=== PATIENT | female | born 1990 | race Caucasian/White ===

== ENCOUNTER 2016-11-10 02:20 | Emergency (ER) | payer BC ==
[~2016-11-10] VITALS: Ht 162.6 cm; Wt 72.6 kg
[2016-11-10 02:30] VITALS: BP 129/95
[2016-11-10] MEDS ORDERED: PENI500T PO (02:35)
[2016-11-10] MEDS ORDERED: HYDR-2758 PO (02:35)
--- NOTE | 2016-11-10 02:35 | PHYS DOC ---
Past History Past Medical History: No Pertinent History Past Surgical History: Tubal ligation Smoking: Non-smoker Alcohol Use: Rarely Drug Use: None Adult General Chief Complaint Chief Complaint: dental pain HPI HPI 25-year-old female with dental pain. Her pain is mild to moderate intermittent throbbing. It is nonradiating and without alleviating factors. She is tried over -the-counter ibuprofen without much relief. Review of systems is negative for stridor tongue swelling difficulty swallowing shortness of breath or fevers. All other review of systems is negative unless otherwise noted in history of present illness. ED course: 25-year-old presenting to the emergency department today with dental pain. Physical exam largely unremarkable. The patient was given oral pain medications to follow-up with her dentist in the next day or 2. The patient was then discharged home in stable condition to follow up with their primary care physician over the next 2-3 days. They were to return if their symptoms worsened or if they were concerned for any reason. [id number] discharge instructions and return precautions were given. Patient's questions were answered to their satisfaction. Patient is comfortable plan. Review of Systems Review of Systems SEE ABOVE. Allergies Allergies Allergies Coded Allergies Type Severity Reaction Last Updated Verified No Known Drug Allergies 02/19/15 No Physical Exam Physical Exam Constitutional: Well developed, well nourished, no acute distress, non-toxic appearance. [] HENT: Normocephalic, atraumatic, bilateral external ears normal, oropharynx moist, no oral exudates, nose normal. [] Eyes: PERRLA, EOMI, conjunctiva normal, no discharge. Neck: Normal range of motion, no tenderness, supple, no stridor. [] Cardiovascular:Heart rate regular rhythm, no murmur [] Lungs & Thorax: Bilateral breath sounds clear to auscultation [] Abdomen: Bowel sounds normal, soft, no tenderness, no masses, no pulsatile masses. [] Skin: Warm, dry, no erythema, no rash. [] Back: No tenderness, no CVA tenderness. [] Extremities: No tenderness, no cyanosis, no clubbing, ROM intact, no edema. Neurologic: Alert and oriented X 3, normal motor function, normal sensory function, no focal deficits noted. [] Psychologic: Affect normal, judgement normal, mood normal. [] EKG EKG [] Radiology/Procedures Radiology/Procedures [] Course & Med Decision Making Course & Med Decision Making Pertinent Labs and Imaging studies reviewed. (See chart for details) [] Dragon Disclaimer Dragon Disclaimer This chart was dictated in whole or in part using Voice Recognition software in a busy, high-work load, and often noisy Emergency Department environment. It may contain unintended and wholly unrecognized errors or omissions. Departure Departure: Impression: Primary Impression: Pain, dental Disposition: HOME, SELF-CARE Condition: STABLE Referrals: LYNNETTE RAHMAN DO (PCP) Patient Instructions: Dental Pain Additional Instructions: Thank you for allowing us to participate in your care today. Followup with a dentist in 1-2 days if your symptoms do not improve. Call your Primary Doctor tomorrow and inform them of your visit today. If you do not have a primary care provider you can ask for a list of our primary care providers. Return to the emergency department you have any new or concerning findings. This should be evaluated by the primary care physician and any necessary consulting services for continued management within a few days after discharge. Return to emergency room if you have any new or concerning symptoms including but not limited to fever, chills, nausea, vomiting, intractable pain, any new rashes, chest pain, shortness of air, uncontrolled bleeding, difficulty breathing, and/or vision loss. You may have been prescribed medication that can change in your level of thinking and ability to operate machinery. These medications include hydrocodone and Ativan. Also, Benadryl has been known to do this as well. Be sure to check with your pharmacist and ask if the medications you've prescribed can affect your level of consciousness. I recommend not operating heavy machinery or driving while on medication such as these. Scripts Penicillin V Potassium (PENICILLIN V POTASSIUM) 500 Mg Tablet 1 TAB PO BID, #10 TAB 0 Refills Prov: JEEVAN SIN MD 11/10/16 Hydrocodone Bit/Acetaminophen (HYDROCODONE-APAP 5-325 ) 1 Each Tablet 1 TAB PO PRN Q6HRS Y for PAIN, #15 TAB 0 Refills Prov: JEEVAN SIN MD 11/10/16 JEEVAN SIN MD Nov 10, 2016 02:35
[2016-11-10] MEDS ORDERED: IBUPROFEN 400 MG TABLET. PO ONE ×2 (03:15→03:18)
== END 2016-11-10 03:20 | disposition home or self-care (01) ==
LOC: ER 02:20
DX: K08.89 Other specified disorders of teeth and supporting structures (principal)
CPT/HCPCS: 81025; 99283

== ENCOUNTER → 2016-11-18 | Outpatient (CLI) | payer BC ==
[2016-11-10 02:30] VITALS: BP 129/95
[~2016-11-18] MED LIST: HYDR-2758 PO; PENI500T PO
--- NOTE | 2016-11-19 09:29 | RAD ---
DATE: 11/18/2016 EXAM: BREAST RIGHT ULTRASOUND HISTORY: Palpable lump in the right breast. COMPARISON: None available. FINDINGS: There is a hyperechoic area in the region of palpable abnormality measuring 12.6 x 7.5 mm. There is no abnormal posterior shadowing. There is no architectural distortion identified by ultrasound. IMPRESSION: Hyperechoic area compatible with a lipoma measuring 12.6 x 7.5 mm. Benign findings. BI-RADS CATEGORY: 2 BENIGN FINDING(S) RECOMMENDED FOLLOW-UP: CLIN FOLLOW UP IMAGING CLINICALLY INDICATED
== END | disposition home or self-care (01) ==
LOC: US 13:51
PROVIDERS: ATTEND Nurse Practitioner Adult Health
DX: N63 Unspecified lump in breast (principal)
CPT/HCPCS: 76641

== ENCOUNTER 2018-04-22 21:12 | Emergency (ER) | payer BC, OTHER ==
[~2018-04-22] VITALS: Ht 162.6 cm; Wt 64.4 kg
[~2018-04-22 21:12] MED LIST changes: +HYDR-2155 PO; -HYDR-2758 PO
[2018-04-22 21:15] VITALS: BP 141/91
[2018-04-22] MEDS ORDERED: ACETAMINOPHEN 500 MG TABLET PO ONE (21:45)
[2018-04-22] MEDS ORDERED: CYCL-331 PO (21:49)
--- NOTE | 2018-04-22 21:49 | PHYS DOC ---
Past History Past Medical History: Other Past Surgical History: No Surgical History Smoking: Non-smoker Alcohol Use: None Drug Use: None Adult General Chief Complaint Chief Complaint: MECHANICAL FALL HPI HPI Patient is a 27 year old female who presents with complaint of lower back and right shoulder pain. Patient states that she suffered an accidental fall at 1640 earlier today while she was in the shower. Patient states that she excellently slipped and fell back, hitting the back of her head, then following on her left side along the edge of the tub. Patient denies any loss consciousness. Patient has been ambulatory since the fall. Patient states that she has had worsening pain above her left buttock and worsening pain along the backside of her right shoulder since the fall. Patient states that she has history of degenerative disc disease of the lower lumbar spine that has been causing chronic pain. Patient states that she took ibuprofen 800 mg approximately 2 hours prior to arrival. Patient states that she was at work and having difficulty being able to do her job and was advised to come to the emergency department for further evaluation. Review of Systems Review of Systems Constitutional: Denies fever or chills [] Eyes: Denies change in visual acuity, redness, or eye pain [] HENT: Denies nasal congestion or sore throat [] Respiratory: Denies cough or shortness of breath [] Cardiovascular: Denies chest pain or edema[] GI: Denies abdominal pain, nausea, vomiting, bloody stools or diarrhea [] : Denies dysuria or hematuria [] Musculoskeletal: Right posterior shoulder pain, left lower back pain[] Integument: Denies rash or skin lesions [] Neurologic: Denies headache, focal weakness or sensory changes [] All other systems were reviewed and found to be within normal limits, except as documented in this note. Allergies Allergies Allergies Coded Allergies Type Severity Reaction Last Updated Verified No Known Drug Allergies 02/19/15 No Physical Exam Physical Exam Constitutional: Well developed, well nourished, no acute distress, non-toxic appearance. [] HENT: Normocephalic, atraumatic, bilateral external ears normal, oropharynx moist, no oral exudates, nose normal. [] Eyes: PERRLA, EOMI, conjunctiva normal, no discharge. [] Neck: Normal range of motion, no tenderness, supple, no stridor. [] Cardiovascular:Heart rate regular rhythm, no murmur [] Lungs & Thorax: Bilateral breath sounds clear to auscultation [] Abdomen: Bowel sounds normal, soft, no tenderness, no masses, no pulsatile masses. [] Skin: Warm, dry, no erythema, no rash. [] Back: No midline tenderness, left paraspinous muscle tenderness to palpation in the lower lumbar spine, no CVA tenderness. [] Extremities: Normal range of motion and right shoulder, normal alignment, tenderness palpation over the posterior right shoulder, no cyanosis, no clubbing , no edema. [] Neurologic: Alert and oriented X 3, normal motor function, normal sensory function, no focal deficits noted. [] Current Patient Data Vital Signs Vital Signs Date Time Temp Pulse Resp B/P (MAP) Pulse Ox O2 Delivery O2 Flow Rate FiO2 04/22/18 21:15 97.8 72 18 100 Room Air Lab Results Not performed EKG EKG Not performed[] Radiology/Procedures Radiology/Procedures Not performed[] Course & Med Decision Making Course & Med Decision Making Pertinent Labs and Imaging studies reviewed. (See chart for details) Assessing the patient, I do not see any severe injuries from her fall necessitating imaging. The patient also states that she does not feel she broke anything and does not feel that imaging is necessary. The patient was given Tylenol and will be prescribed Flexeril for continued outpatient treatment of lower lumbar strain and right shoulder strain. Advised follow-up with primary doctor in 1 week for reevaluation. The patient states that she would like to return to work tonight. I provided her with a work note advising light duty. Recommended return to emergency department for any worsening symptoms. Patient was understanding and in agreement with treatment plan.[] Dragon Disclaimer Dragon Disclaimer This electronic medical record was generated, in whole or in part, using a voice recognition dictation system. Departure Departure: Impression: Primary Impression: Right shoulder strain Additional Impression: Low back strain Disposition: 01 HOME, SELF-CARE Condition: IMPROVED Referrals: PCPMAEGAN (PCP) Patient Instructions: Back Pain in , Muscle Strain Additional Instructions: Follow-up with your primary doctor in 1 week for reevaluation. Return to the emergency department for any worsening symptoms. Scripts Cyclobenzaprine Hcl (CYCLOBENZAPRINE HCL) 10 Mg Tablet 1 TAB PO QHS PRN for MUSCLE PAIN, #20 TAB Prov: BABS CONDON MD 04/22/18 Problem Qualifiers Primary Impression: Right shoulder strain Encounter type: initial encounter Qualified Codes: S46.911A - Strain of unspecified muscle, fascia and tendon at shoulder and upper arm level, right arm , initial encounter Additional Impression: Low back strain Encounter type: initial encounter Qualified Codes: S39.012A - Strain of muscle, fascia and tendon of lower back, initial encounter BABS CONDON MD Apr 22, 2018 21:49
[2018-04-22] MEDS ORDERED: CYCLOBENZAPRINE 10 MG TABLET. ONE (21:55)
[2018-04-22] MEDS ORDERED: CYCLOBENZAPRINE 10 MG TABLET. PO ONE (22:00)
== END 2018-04-22 22:03 | disposition home or self-care (01) ==
LOC: ER 21:12
DX: S39.012A Strain of muscle, fascia and tendon of lower back, initial encounter (principal); S46.911A Strain of unspecified muscle, fascia and tendon at shoulder and upper arm level, right arm, initial encounter; G89.29 Other chronic pain; W01.198A Fall on same level from slipping, tripping and stumbling with subsequent striking against other object, initial encounter; Y93.E1 Activity, personal bathing and showering; Y92.89 Other specified places as the place of occurrence of the external cause; Y99.8 Other external cause status
CPT/HCPCS: 99283

== ENCOUNTER 2018-12-01 16:28 | Emergency (ER) | payer SELFPAY ==
[~2018-12-01] VITALS: Ht 162.6 cm; Wt 72.8 kg
[~2018-12-01 16:28] MED LIST changes: +CYCL-331 PO
[2018-12-01] MEDS ORDERED: IV NORMAL SALINE 1,000ML 1,000 ML IV SCH (17:02)
--- NOTE | 2018-12-01 17:08 | PHYS DOC ---
Past History Past Medical History: Asthma, Other (CHRISTINA VERGARA DO) Past Surgical History: Tubal ligation (CHRISTINA VERGARA DO) Smoking: Non-smoker Additional Smoking Information: 5-10 cig per day Alcohol Use: Occasionally Drug Use: None (CHRISTINA VERGARA DO) Adult General Chief Complaint Chief Complaint: ABDOMINAL PAIN HPI HPI Patient is a 27-year-old female presents with severe pelvic pain, worse on the left side, for Roxanol the past 4 hours. Patient is on the second day of her menstrual cycle. She has taken no medicine for this pain since ibuprofen did not help with usual pain and cramping last night. Reports the pain seems to radiate everywhere. She has had some nausea and vomiting secondary to the pain. No diarrhea. No blood in the emesis. No recent travel. No recent surgical history. Her surgical history is significant for tubal ligation. Nothing seems to make th e symptoms better. Movement makes it worse. No fever. No vaginal discharge other than her usual menstrual cycle bleeding.[] (CHRISTINA VERGARA DO) Review of Systems Review of Systems Constitutional: Denies fever or chills [] Eyes: Denies change in visual acuity, redness, or eye pain [] HENT: Denies nasal congestion or sore throat [] Respiratory: Denies cough or shortness of breath [] Cardiovascular: No chest pain or palpitations[] GI: See history of present illness[] : Denies dysuria or hematuria, see history of present illness [] Musculoskeletal: Denies back pain or joint pain [] Integument: Denies rash or skin lesions [] Neurologic: Denies headache, focal weakness or sensory changes [] Endocrine: Denies polyuria or polydipsia [] All other systems were reviewed and found to be within normal limits, except as documented in this note. (CHRISTINA VERGARA DO) Allergies Allergies Allergies Coded Allergies Type Severity Reaction Last Updated Verified No Known Drug Allergies 12/01/18 No (CHRISTINA VERGARA DO) Physical Exam Physical Exam Constitutional: Well developed, well nourished, uncomfortable, pacing, non-toxic appearance. [] HENT: Normocephalic, atraumatic, bilateral external ears normal, oropharynx moist, no oral exudates, nose normal. [] Eyes: PERRLA, EOMI, conjunctiva normal, no discharge. [] Neck: Normal range of motion, no tenderness, supple, no stridor. [] Cardiovascular:Heart rate regular rhythm, no murmur [] Lungs & Thorax: Bilateral breath sounds clear to auscultation [] Abdomen: Bowel sounds normal, soft, diffuse tenderness, worse in the left lower quadrant/left pelvis, no rebound, no guarding, no rigidity, able to sit up and lay back without any difficulty,, no masses, no pulsatile masses. Pelvic exam performed with retail field representative: External genitalia: Normal external genitalia, [place]'s glands, urethra, and Bartholin's glands. Vaginal vault: Mild blood in the vault, no other discharge noted. Cervix: Mild blood from the cervix, no cervical motion tenderness, parous os. [] Skin: Warm, dry, no erythema, no rash. [] Back: No tenderness, no CVA tenderness. [] Extremities: No tenderness, no cyanosis, no clubbing, ROM intact, no edema. [] Neurologic: Alert and oriented X 3, normal motor function, normal sensory function, no focal deficits noted. [] Psychologic: Affect normal, judgement normal, mood normal. [] ([facility]) Current Patient Data Vital Signs Vital Signs Date Time Temp Pulse Resp B/P (MAP) Pulse Ox O2 Delivery O2 Flow Rate FiO2 12/01/18 16:37 98.1 81 18 95 Room Air ([facility]) EKG EKG [] ([facility]) Radiology/Procedures Radiology/Procedures PROCEDURE: CT ABDOMEN PELVIS WO CONTRAST INDICATION: Lower abdominal and pelvic pain COMPARISON: None. TECHNIQUE: Axial CT images obtained through the abdomen and pelvis without contrast. Limited assessment of solid organ structures and vasculature secondary to lack of intravenous contrast. One or more of the following individualized dose reduction techniques were utilized for this examination: 1. Automated exposure control; 2. Adjustment of the mA and/or kV according to patient size; 3. Use of iterative reconstruction technique. FINDINGS: Abdominal aorta is not aneurysmal. Fat-containing umbilical hernia. No intrahepatic bile duct dilation. Numerous gallstones. Limited evaluation of pancreas without contrast without a definite adjacent fluid collection. Spleen unremarkable. No hydronephrosis. Urinary bladder is partially distended. Low-density lesion is suspected at the right adnexa measuring up to 28 mm. Appendix measures up to about 7 mm without definite adjacent inflammatory changes. No dilated loops of bowel to suggest obstruction. There is some degenerative changes the spine with disc protrusion osteophyte formation including at L4-5 and L5-S1. IMPRESSION: 1. No hydronephrosis or a definite radiopaque obstructive ureter stone. 2. Gallstones are identified. 3. The appendix is borderline dilated but there is no definite adjacent inflammatory changes to suggest acute appendicitis. 4. Low-density lesion within the right adnexa. Suspect that this is cystic in nature but if more complete characterization is desired pelvic ultrasound could further evaluate and ensure that there is no complex/solid component.[] (CHRISTINA VERGARA DO) Impressions: PROCEDURE: US PELVIS W/TV INDICATION: Pelvic pain COMPARISON: None. TECHNIQUE: Grayscale and color ultrasound images uterus and adnexa. Transabdominal and transvaginal images obtained. FINDINGS: Uterus: 81 x 50 x 38 mm. Endometrial Stripe: 4 mm. Right Ovary: 32 x 39 x 25 mm. Left Ovary: 27 x 26 x 21 mm. Vascular flow identified to bilateral ovaries. Hypoechoic lesion right ovary 22 x 20 mm. IMPRESSION: 1. Hypoechoic lesion of the right ovary with some internal echoes. Most likely cause would be a hemorrhagic cyst although a follow-up could be obtained to ensure that this decreases in size to exclude alternative causes of a complex cystic lesion of the adnexa. Electronically signed by: David Pandey MD (12/01/2018 6:38 PM) [facility] DICTATED AND SIGNED BY: DAVID PANDEY MD DATE: 12/01/181837 (STORMY HERNANDES Jr. DO) Course & Med Decision Making Course & Med Decision Making Pertinent Labs and Imaging studies reviewed. (See chart for details) ED course: Patient arrived, was placed in bed, and tolerated exam well. She was transported to and from [place] with any complications. Pelvic exam was performed with retail field representative as noted above. Patient care was endorsed to the nighttime physician with laboratory and ultrasound findings pending[] (CHRISTINA VERGARA DO) Dragon Disclaimer Dragon Disclaimer This electronic medical record was generated, in whole or in part, using a voice recognition dictation system. (CHRISTINA VERGARA DO) Departure Departure: Impression: Primary Impression: Hemorrhagic ovarian cyst Disposition: 01 HOME, SELF-CARE Condition: STABLE Referrals: PCP,MAEGAN (PCP) Patient Instructions: Ovarian Cyst Scripts Hydrocodone Bit/Acetaminophen (NORCO 5-325 TABLET) 1 Each Tablet 1 TAB PO PRN Q6HRS PRN for PAIN, #12 TAB 0 Refills Prov: STORMY HERNANDES Jr. DO 12/01/18 Ondansetron Hcl (ZOFRAN) 4 Mg Tablet 4 MG PO Q6HRS PRN for NAUSEA, #12 TAB Prov: STORMY HERNANDES Jr. DO 12/01/18 CHRISTINA VERGARA DO Dec 01, 2018 17:07 STORMY HERNANDES Jr. DO Dec 01, 2018 19:07
[2018-12-01] MEDS ORDERED: PROCHLORPERAZINE 10 MG/2 ML VIAL. IV ONE (17:15)
[2018-12-01] MEDS ORDERED: KETOROLAC 30 MG/ML VIAL. IV ONE (17:15)
--- NOTE | 2018-12-01 17:43 | RAD ---
INDICATION: Lower abdominal and pelvic pain COMPARISON: None. TECHNIQUE: Axial CT images obtained through the abdomen and pelvis without contrast. Limited assessment of solid organ structures and vasculature secondary to lack of intravenous contrast. One or more of the following individualized dose reduction techniques were utilized for this examination: 1. Automated exposure control; 2. Adjustment of the mA and/or kV according to patient size; 3. Use of iterative reconstruction technique. FINDINGS: Abdominal aorta is not aneurysmal. Fat-containing umbilical hernia. No intrahepatic bile duct dilation. Numerous gallstones. Limited evaluation of pancreas without contrast without a definite adjacent fluid collection. Spleen unremarkable. No hydronephrosis. Urinary bladder is partially distended. Low-density lesion is suspected at the right adnexa measuring up to 28 mm. Appendix measures up to about 7 mm without definite adjacent inflammatory changes. No dilated loops of bowel to suggest obstruction. There is some degenerative changes the spine with disc protrusion osteophyte formation including at L4-5 and L5-S1. IMPRESSION: 1. No hydronephrosis or a definite radiopaque obstructive ureter stone. 2. Gallstones are identified. 3. The appendix is borderline dilated but there is no definite adjacent inflammatory changes to suggest acute appendicitis. 4. Low-density lesion within the right adnexa. Suspect that this is cystic in nature but if more complete characterization is desired pelvic ultrasound could further evaluate and ensure that there is no complex/solid component. Electronically signed by: Logan Pandey MD (12/01/2018 5:40 PM) [facility]
[2018-12-01 18:06] LABS: BILIRUBIN,URINE NEG (NEG); CLARITY,URINE HAZY; COLOR,URINE YELLOW; GLUCOSE,URINE NEG (NEG)
[2018-12-01 18:07] LABS: BACTERIA,URINE 0 /HPF (0-FEW); NITRITE,URINE NEG (NEG); RBC,URINE 0 /HPF (0-2); SQUAMOUS EPITHELIAL CELL,UR OCC /LPF; UROBILINOGEN,URINE 0.2 mg/dL (0.2 mg/dL); WBC,URINE 0 /HPF (0-4)
[2018-12-01 18:11] LABS: BASO % 0 % (0-3); EOS # 0.3 x10^3/uL (0.0-0.7); EOS % 3 % (0-3); HEMATOCRIT 42.8 % (36.0-47.0); HEMOGLOBIN 14.3 g/dL (12.0-15.5); LYMPH # 2.1 x10^3/uL (1.0-4.8); LYMPH % 19 % (24-48); MEAN CORPUSCULAR HEMOGLOBIN 30 pg (25-35); MEAN CORPUSCULAR HGB CONC 33 g/dL (31-37); MEAN CORPUSCULAR VOLUME 89 fL (79-100); MONO # 0.6 x10^3/uL (0.0-1.1); MONO % 5 % (0-9); NEUT # 8.1 x10^3uL (1.8-7.7); NEUT % 73 % (31-73); PLATELET COUNT 232 x10^3/uL (140-400); RED BLOOD COUNT 4.79 x10^6/uL (3.50-5.40); RED CELL DISTRIBUTION WIDTH 12.1 % (11.5-14.5); WHITE BLOOD COUNT 11.1 x10^3/uL (4.0-11.0)
[2018-12-01 18:26] LABS: ALBUMIN 3.9 g/dL (3.4-5.0); ALBUMIN/GLOBULIN RATIO 1.1 (1.0-1.7); CREATININE 1.1 mg/dL (0.6-1.0); GFR 59.1; POTASSIUM 3.7 mmol/L (3.5-5.1); TOTAL BILIRUBIN 0.7 mg/dL (0.2-1.0); TOTAL PROTEIN 7.3 g/dL (6.4-8.2)
--- NOTE | 2018-12-01 18:41 | RAD ---
INDICATION: Pelvic pain COMPARISON: None. TECHNIQUE: Grayscale and color ultrasound images uterus and adnexa. Transabdominal and transvaginal images obtained. FINDINGS: Uterus: 81 x 50 x 38 mm. Endometrial Stripe: 4 mm. Right Ovary: 32 x 39 x 25 mm. Left Ovary: 27 x 26 x 21 mm. Vascular flow identified to bilateral ovaries. Hypoechoic lesion right ovary 22 x 20 mm. IMPRESSION: 1. Hypoechoic lesion of the right ovary with some internal echoes. Most likely cause would be a hemorrhagic cyst although a follow-up could be obtained to ensure that this decreases in size to exclude alternative causes of a complex cystic lesion of the adnexa. Electronically signed by: Logan Pandey MD (12/01/2018 6:38 PM) [facility]
[2018-12-01] MEDS ORDERED: ONDA4TAB7 PO (19:07)
[2018-12-01] MEDS ORDERED: HYDR-3165 PO (19:07)
[2018-12-01 19:29] VITALS: BP 114/68
== END 2018-12-01 19:20 | disposition home or self-care (01) ==
LOC: ER 16:28
DX: N83.201 Unspecified ovarian cyst, right side (principal); R11.2 Nausea with vomiting, unspecified; J45.909 Unspecified asthma, uncomplicated; F17.210 Nicotine dependence, cigarettes, uncomplicated; Z98.51 Tubal ligation status
CPT/HCPCS: 36415; 74176; 76830; 76856; 80053; 81001; 81025; 83690; 84484; 85025; 87491; 87591; 96361; 96374; 99285; J1885; Q0111; J7030

== ENCOUNTER → 2021-08-11 | Outpatient (CLI) | payer OTHER ==
[~2021-08-11] MED LIST changes: -CYCL-331 PO; +CYCL10TA19 PO; +HYDR-3165 PO; +ONDA4TAB7 PO
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
== END ==
LOC: PMG 11:30
PROVIDERS: ATTEND Nurse Practitioner Family
DX: M54.50 Low back pain, unspecified (principal); M25.561 Pain in right knee; M54.2 Cervicalgia; V87.7XXA Person injured in collision between other specified motor vehicles (traffic), initial encounter
CPT/HCPCS: 72040; 72072; 72110; 73562